=== PATIENT | female | born 1970 | race Caucasian/White ===

== ENCOUNTER 2017-02-19 20:24 | Emergency (ER) | payer OTHER ==
--- NOTE | 2017-02-19 21:12 | ED CLINICAL REPORT ---
Clinical Report - Physicians/Mid Levels [facility] [address] [place] [address] 02/19/2017 20:26 [id number] Time Seen: 2048. Arrived- By private vehicle. Historian- patient. HISTORY OF PRESENT ILLNESS Chief Complaint: Injury to left ankle. (2 days prior to arrival, patient sustained an inversion injury to her left ankle, all wearing shoes, and her garden on uneven surface. Since that incident she has had some pain, initially had difficulty with ambulation, however such as improved. Reports no new rash over the last 24 hours to her left ankle. Denies prior surgeries to the left ankle. Reports prior history of ankle sprain. Denies any fevers or chills. Patient denies a history of DVT. Patient denies any recent antibiotic use. Denies any history of MRSA.). REVIEW OF SYSTEMS The patient complains of pain on weight bearing. No skin laceration. All systems otherwise negative, except as recorded above. PAST HISTORY The patient has not had a prior injury to the same area. SOCIAL HISTORY Current every day light tobacco smoker. No alcohol use or drug use. ADDITIONAL NOTES The nursing notes have been reviewed. PHYSICAL EXAM Vital Signs: 02/19/2017 21:31 BP: 109/71. HR: 80. RR: 18. O2 saturation: 100%. Pain level now: 6/10. Appearance: Alert. Head: Head atraumatic. ENT: Nose normal. Pharynx normal. Neck: Normal inspection. Neck supple. No decreased ROM in the neck. CVS: Normal heart rate and rhythm. Heart sounds normal. No cardiac murmur or extra heart sounds. Respiratory: No respiratory distress. Breath sounds normal. No chest wall injury. Skin: Skin warm. Normal skin color. Extremities: Left ankle: mild erythema, tenderness and swelling. Small joint effusion present. (erythema overlying the medial aspect of the malleolus, extending into the distal aspect of the tibia, as well as into the calcaneous. no plantar lesion. no vesicle. warmth present). No ligamentous laxity present. No ecchymosis or foreign body. No limitation in ROM. Left foot: erythema and mild tenderness of the lateral aspect of the foot. Neuro, Vascular and Tendons: Vascular status intact. Motor intact. Gait: Limping gait. Neuro: Oriented X 3. LABS, X-RAYS, AND EKG Lt Ankle X-ray: (IMPRESSION: 1. Soft tissue swelling. 2. Otherwise negative left ankle. Electronically Final signed by:Renny Ybarra MD 02/19/2017 9:53:40 PM). PROGRESS AND PROCEDURES Course of Care: full range of motion of the calcaneus or Achilles tenderness. No signs of fracture on x-ray. No signs of abscess. Patient with no history of previous rheumatoid, gouty or pseudogout arthritis. Signs of acute infectious process,with no history of MRSA, however present in the current setting of vomiting, we'll treat with Keflex and Bactrim. Patient's ancillary. Afebrile, nonseptic. Patient is stable. Symptoms better. Disposition: Discharged. CLINICAL IMPRESSION Sprain of the tibiofibular ligament of the left ankle. Cellulitis of the left lower leg and left ankle. INSTRUCTIONS Elevate affected areas above chest level. Prescription Medications: Cephalexin 500 mg: take 1 capsule orally every 8 hours for 10 days. No refill. Bactrim DS 800 mg / 160 mg: take 1 tablet orally for 10 days. No refill. Substitution is permissible. OTC Medications: Take OTC medications according to label instructions. Available over the counter. Acetaminophen (available over the counter): take according to label instructions. Motrin (available over the counter): take according to label instructions. (Electronically signed by Radha Sol P.A.-C 02/19/2017 22:06)
--- NOTE | 2017-02-19 21:12 | ED ORDER SUMMARY ---
..... Patient: JACQUI OQUENDO OrderSheet [facility] VisitID: [id number] [place] [address] 46y, F Registration Date/Time: 02/19/2017 ORDER SHEET Weight: 61.2 kg Allergies: No Known Drug Allergy GENERAL ORDERS: Ankle 3 or 4V Left Urgent (20:49 02/19/2017 Mohit Nava.A.-C) (Ack 20:51 IJurca ER Tech1) (20:59 MCampbell) MEDICATION ORDERS: Bactrim DS PO (Tablet 800-160 mg) 1 tab (NOW) (20:49 02/19/2017 Mohit Nava.A.-C) (Ack 21:15 SRoberts R.N.) (21:29 SRoberts R.N.) Tdap IM 0.5 mL (NOW, per protocol) (20:49 02/19/2017 Mohit Nava.A.-C) (Ack 21:15 SRoberts R.N.) (21:30 SRoberts R.N.) IV FLUIDS: ORDER SHEET NOTES: [Electronically signed by Yahaira Lemon R.N. (21:33 02/19/2017)] [Electronically signed by Radha Sol P.A.-C (22:06 02/19/2017)] [Electronically locked/signed by Yahaira Lemon R.N. (21:33 02/19/2017)]
--- NOTE | 2017-02-19 21:12 | ED NURSING NOTES ---
Clinical Report - Nurses [facility] [address] [place] [address] 02/19/2017 20:26 [id number] TRI[facility] Triage time 20:43. Acuity: LEVEL 4. Chief Complaint: LEFT LOWER EXTREMITY PAIN, SWELLING and REDNESS. --20:46 TonyaB, R.N. 20:43 02/19/17. BP: 134/91. HR: 93. RR: 16. O2 saturation: 100%. Temp: 98.2 F. Pain level now: 04/10. --20:46 TonyaB, R.N. Weight: 61.2 kg. Height/Length: 67 inches. BMI: 21.2. --20:46 TonyaB, R.N. Medications None. --20:44 TonyaB, R.N. Allergies No Known Drug Allergy. --20:44 TonyaB, R.N. History Arrived by private vehicle. Historian: patient. Accompanied by friend. Injury occurred. Location of injuries: left lateral ankle. This occurred (2 days ago). She has had swelling and redness. Treatment COGNOS DEVELOPER: None. PAST MEDICAL HX: Tetanus status: up-to-date. Immunizations: up-to-date. Last normal menstrual period- 4 months. SOCIAL HX: Light tobacco smoker. No alcohol use or drug use. No infectious disease exposure. SELF HARM ASSESSMENT: A self harm assessment was performed. The patient answered "no" to the question "Have you recently felt down, depressed, or hopeless?", "Have you noticed less interest or pleasure in doing things?", "Do you have thoughts of harming or killing yourself?", "Are you here because you tried to hurt yourself?", "Have you ever tried to hurt yourself before today?", "Have you recently had thoughts about harming or killing others?" and "Do you have any dangerous items in your possession?". FALL RISK ASSESSMENT: Fall risk assessment completed. No fall risk identified. NUTRITIONAL RISK ASSESSMENT: The nutritional risk assessment revealed no deficiencies. FUNCTIONAL ASSESSMENT: Functional assessment: no impairments noted. LEARNING NEEDS ASSESSMENT: The learning needs assessment revealed no barriers. SKIN INTEGRITY ASSESSMENT: Skin integrity risk assessment completed. No skin integrity risk identified. --20:46 Shefali Patel SOCIAL HX: Occasional alcohol use. --20:48 Shefali Patel PROBLEMS: no known problems. ADDITIONAL SURGERIES: Appendectomy. . Tubal Ligation. --20:44 Shefali Patel Interventions ID band on patient. To treatment room. --20:46 Shefali Patel PHYSICAL ASSESSMENT Ambulatory to room. GENERAL / NEURO / PSYCH: Oriented X 4. Alert. Appears in no acute distress. EXTREMITIES: Extremity pulses are within normal limits. Left ankle: tenderness, swelling and erythema. SKIN: Skin intact. Skin is warm and dry. --20:47 Shefali Patel NURSING PROGRESS NOTES Patient identifiers checked. Call light placed in reach. Side rails up x 1. Bed placed in lowest position. Brakes of bed on. --20:47 Shefali Patel 21:24 02/19/2017 Bactrim DS (Sulfamethoxazole-TMP DS) PO 1 tab given. Allergies verified and confirmed 5 rights. --21:29 Yahaira Lemon R.N. 21:25 02/19/2017 TDAP IM 0.5 mL given. (Lot#: [id number], expiration date: 08/08/2018, Asphalt Heater Operator: sanofi pasteur). Given in the right deltoid. Allergies verified and confirmed 5 rights. Vaccine information statement provided to the patient. --21:30 Yahaira Lemon R.N. DISPOSITION / DISCHARGE Condition at departure: unchanged. No learning barriers present. Discharge instructions provided and reviewed with the patient. Reviewed medication(s) side effects, precautions, dosing and course information. Prescription(s) given to the patient. Patient verbalized understanding. Written instructions provided in Divehi. The patient was discharged home and accompanied by data communications analyst. She left the Emergency Department ambulatory and via private vehicle. Sheet Rocker driving. Medication list reviewed and validated. --21:31 Yahaira Lemon R.N. 21:31 02/19/17. BP: 109/71. HR: 80. RR: 18. O2 saturation: 100%. Temp: deferred. Pain level now: 6/10. 20:43 02/19/17. BP: 134/91. HR: 93. RR: 16. O2 saturation: 100%. Temp: 98.2 F. Pain level now: 04/10. --21:32 Yahaira Lemon R.N. Locked/Released at 02/19/2017 21:33 by Yahaira Lemon R.N.
--- NOTE | 2017-02-19 21:12 | ED NURSING NOTES ---
Clinical Report - Nurses [facility] [address] [place] [address] 02/19/2017 20:26 [id number] TRI[facility] Triage time 20:43. Acuity: LEVEL 4. Chief Complaint: LEFT LOWER EXTREMITY PAIN, SWELLING and REDNESS. --20:46 TonyaB, R.N. 20:43 02/19/17. BP: 134/91. HR: 93. RR: 16. O2 saturation: 100%. Temp: 98.2 F. Pain level now: 04/10. --20:46 TonyaB, R.N. Weight: 61.2 kg. Height/Length: 67 inches. BMI: 21.2. --20:46 TonyaB, R.N. Medications None. --20:44 TonyaB, R.N. Allergies No Known Drug Allergy. --20:44 TonyaB, R.N. History Arrived by private vehicle. Historian: patient. Accompanied by friend. Injury occurred. Location of injuries: left lateral ankle. This occurred (2 days ago). She has had swelling and redness. Treatment NUT GRINDER: None. PAST MEDICAL HX: Tetanus status: up-to-date. Immunizations: up-to-date. Last normal menstrual period- 4 months. SOCIAL HX: Light tobacco smoker. No alcohol use or drug use. No infectious disease exposure. SELF HARM ASSESSMENT: A self harm assessment was performed. The patient answered "no" to the question "Have you recently felt down, depressed, or hopeless?", "Have you noticed less interest or pleasure in doing things?", "Do you have thoughts of harming or killing yourself?", "Are you here because you tried to hurt yourself?", "Have you ever tried to hurt yourself before today?", "Have you recently had thoughts about harming or killing others?" and "Do you have any dangerous items in your possession?". FALL RISK ASSESSMENT: Fall risk assessment completed. No fall risk identified. NUTRITIONAL RISK ASSESSMENT: The nutritional risk assessment revealed no deficiencies. FUNCTIONAL ASSESSMENT: Functional assessment: no impairments noted. LEARNING NEEDS ASSESSMENT: The learning needs assessment revealed no barriers. SKIN INTEGRITY ASSESSMENT: Skin integrity risk assessment completed. No skin integrity risk identified. --20:46 Shefali Patel SOCIAL HX: Occasional alcohol use. --20:48 Shefali Patel PROBLEMS: no known problems. ADDITIONAL SURGERIES: Appendectomy. . Tubal Ligation. --20:44 Shefali Patel Interventions ID band on patient. To treatment room. --20:46 Shefali Patel PHYSICAL ASSESSMENT Ambulatory to room. GENERAL / NEURO / PSYCH: Oriented X 4. Alert. Appears in no acute distress. EXTREMITIES: Extremity pulses are within normal limits. Left ankle: tenderness, swelling and erythema. SKIN: Skin intact. Skin is warm and dry. --20:47 Shefali Patel NURSING PROGRESS NOTES Patient identifiers checked. Call light placed in reach. Side rails up x 1. Bed placed in lowest position. Brakes of bed on. --20:47 Shefali Patel 21:24 02/19/2017 Bactrim DS (Sulfamethoxazole-TMP DS) PO 1 tab given. Allergies verified and confirmed 5 rights. --21:29 Yahaira Lemon R.N. 21:25 02/19/2017 TDAP IM 0.5 mL given. (Lot#: [id number], expiration date: 08/08/2018, Pbx Repairer: sanofi pasteur). Given in the right deltoid. Allergies verified and confirmed 5 rights. Vaccine information statement provided to the patient. --21:30 Yahaira Lemon R.N. DISPOSITION / DISCHARGE Condition at departure: unchanged. No learning barriers present. Discharge instructions provided and reviewed with the patient. Reviewed medication(s) side effects, precautions, dosing and course information. Prescription(s) given to the patient. Patient verbalized understanding. Written instructions provided in Armenian. The patient was discharged home and accompanied by notching machine operator. She left the Emergency Department ambulatory and via private vehicle. Net Washer driving. Medication list reviewed and validated. --21:31 Yahaira Lemon R.N. 21:31 02/19/17. BP: 109/71. HR: 80. RR: 18. O2 saturation: 100%. Temp: deferred. Pain level now: 6/10. 20:43 02/19/17. BP: 134/91. HR: 93. RR: 16. O2 saturation: 100%. Temp: 98.2 F. Pain level now: 04/10. --21:32 Yahaira Lemon R.N. Locked/Released at 02/19/2017 21:33 by Yahaira Lemon R.N.
--- NOTE | 2017-02-19 21:12 | ED ORDER SUMMARY ---
..... Patient: JACQUI OQUENDO OrderSheet [facility] VisitID: [id number] [place] [address] 46y, F Registration Date/Time: 02/19/2017 ORDER SHEET Weight: 61.2 kg Allergies: No Known Drug Allergy GENERAL ORDERS: Ankle 3 or 4V Left Urgent (20:49 02/19/2017 Mohit Nava.A.-C) (Ack 20:51 IJurca ER Tech1) (20:59 MCampbell) MEDICATION ORDERS: Bactrim DS PO (Tablet 800-160 mg) 1 tab (NOW) (20:49 02/19/2017 Mohit Nava.A.-C) (Ack 21:15 SRoberts R.N.) (21:29 SRoberts R.N.) Tdap IM 0.5 mL (NOW, per protocol) (20:49 02/19/2017 Mohit Nava.A.-C) (Ack 21:15 SRoberts R.N.) (21:30 SRoberts R.N.) IV FLUIDS: ORDER SHEET NOTES: [Electronically signed by Yahaira Lemon R.N. (21:33 02/19/2017)] [Electronically signed by Radha Sol P.A.-C (22:06 02/19/2017)] [Electronically locked/signed by Yahaira Lemon R.N. (21:33 02/19/2017)]
--- NOTE | 2017-02-19 21:57 | DIAGNOSTIC IMAGING REPORT ---
PROCEDURE: XR ANKLE 3 OR 4 VIEWS - LEFT INDICATION: TRAUMA/INJURY TECHNIQUE: Four views. COMPARISON: None. FINDINGS: Mild to moderate soft tissue swelling. Osseous structures and joint spaces are normal. IMPRESSION: 1. Soft tissue swelling. 2. Otherwise negative left ankle.
--- NOTE | 2017-02-19 22:06 | ED MAR SUMMARY ---
..... Medication Administration Record [facility] [address] [place] [address] Patient: JACQUI OQUENDO Visit ID: [id number] 46y, F Weight: 61.2 kg Height/Length: 67 in BMI: 21.2 ALLERGIES: No Known Drug Allergy Given 21:24 02/19/2017 Yahaira Lemon RHinaN. Medication Administered: BACTRIM DS [PO] (SULFAMETHOXAZOLE-TMP DS), Dose: 1 tab PO. Medication Ordered: Bactrim DS PO (Tablet 800-160 mg) 1 tab (NOW). Given 21:25 02/19/2017 Yahaira Lemon, RHinaN. Medication Administered: TDAP [IM], Dose: 0.5 mL IM. Medication Ordered: Tdap IM 0.5 mL (NOW, per protocol).
--- NOTE | 2017-02-19 22:06 | ED MED RECONCILIATION SUMMARY ---
Patient: JACQUI OQUENDO Medication Reconciliation Report [facility] VisitID: [id number] [place] [address] 46y, F Registration Date/Time: 02/19/2017 Weight: 61.2 kg Height/Length: 67 in. BMI: 21.2 ALLERGIES: No Known Drug Allergy The patient's Home Medications are listed below: NONE. The source(s) of the original Home Medication information: Not obtained. The following Medications were given to the patient in the Emergency Department: Bactrim DS [PO] PO 1 tab, administered: 02/19/2017 9:24:00 PM TDAP [IM] IM 0.5 mL, administered: 02/19/2017 9:25:00 PM The following Medications were prescribed to the patient: Take OTC medications according to label instructions. Available over the counter. -- Radha Sol, P.A.-C Acetaminophen (available over the counter): take according to label instructions. -- Radha Sol, P.A.-C Motrin (available over the counter): take according to label instructions. -- Radha Sol, P.A.-C Cephalexin 500 mg: take 1 capsule orally every 8 hours for 10 days. No refill. -- Radha Sol, P.A.-C Bactrim DS 800 mg / 160 mg: take 1 tablet orally for 10 days. No refill. Substitution is permissible. -- Radha Sol, P.A.-C
--- NOTE | 2017-02-19 22:06 | ED MED RECONCILIATION SUMMARY ---
Patient: JACQUI OQUENDO Medication Reconciliation Report [facility] VisitID: [id number] [place] [address] 46y, F Registration Date/Time: 02/19/2017 Weight: 61.2 kg Height/Length: 67 in. BMI: 21.2 ALLERGIES: No Known Drug Allergy The patient's Home Medications are listed below: NONE. The source(s) of the original Home Medication information: Not obtained. The following Medications were given to the patient in the Emergency Department: Bactrim DS [PO] PO 1 tab, administered: 02/19/2017 9:24:00 PM TDAP [IM] IM 0.5 mL, administered: 02/19/2017 9:25:00 PM The following Medications were prescribed to the patient: Take OTC medications according to label instructions. Available over the counter. -- Radha Sol, P.A.-C Acetaminophen (available over the counter): take according to label instructions. -- Radha Sol, P.A.-C Motrin (available over the counter): take according to label instructions. -- Radha Sol, P.A.-C Cephalexin 500 mg: take 1 capsule orally every 8 hours for 10 days. No refill. -- Radha Sol, P.A.-C Bactrim DS 800 mg / 160 mg: take 1 tablet orally for 10 days. No refill. Substitution is permissible. -- Radha Sol, P.A.-C
--- NOTE | 2017-02-19 22:06 | ED DISCHARGE INSTRUCTIONS ---
Patient: JACQUI OQUENDO General Instructions [facility] VisitID: [id number] [place] [address] 46y, F Registration Date/Time: 02/19/2017 Sprain of the tibiofibular ligament of the left ankle. Cellulitis of the left lower leg and left ankle. INSTRUCTIONS Elevate affected areas above chest level. Prescription Medications: Cephalexin 500 mg: take 1 capsule orally every 8 hours for 10 days. No refill. Bactrim DS 800 mg / 160 mg: take 1 tablet orally for 10 days. No refill. Substitution is permissible. OTC Medications: Take OTC medications according to label instructions. Available over the counter. Acetaminophen (available over the counter): take according to label instructions. Motrin (available over the counter): take according to label instructions. ADDITIONAL INFORMATION Sprain, Ankle,With X-Ray A sprain is an injury to the ligaments or capsule that holds a joint together. There are no broken bones. Most sprains take from four to six weeks to heal. If the ligament is completely torn (severe sprain), it can take several months to recover. Mild to moderate sprains may be treated with an elastic wrap or an in-shoe splint to provide support and prevent re-injury. A mild sprain may not require any additional support. A severe sprain may require surgery to repair. Home care The following guidelines will help you care for your injury at home: Stay off the injured leg as much as possible until you can walk on it without pain. If you have a lot of pain with walking, crutches or a walker may be prescribed. (These can be rented or purchased at many pharmacies and surgical or orthopedic supply stores). Follow your doctor's advice regarding when to begin bearing weight on that leg. Keep your leg elevated to reduce pain and swelling. When sleeping, place a pillow under the injured leg. When sitting, support the injured leg so it is level with your waist. This is very important during the first 48 hours. Apply an ice pack (ice cubes in a plastic bag, wrapped in a towel) over the injured area for 20 minutes every 12 hours the first day. You can place the ice pack directly over the splint/cast. If you were given a boot, open it to apply the ice pack. Continue with ice packs 34 times a day for the next two days, then as needed for the relief of pain and swelling. You may use acetaminophen or ibuprofen to control pain, unless another pain medicine was prescribed. If you have chronic liver or kidney disease or ever had a stomach ulcer or GI bleeding, talk with your doctor before using these medicines. You may return to sports after healing, when you can run without pain. A sprained ankle is at risk for re-injury during the first six weeks. During that time, protect your ankle with an in-shoe splint that prevents tilting of your ankle from side to side. This is very important if you do active work or play sports during that time. Follow-up care Any X-rays you had today dont show any broken bones, breaks, or fractures. Sometimes fractures dont show up on the first X-ray. Bruises and sprains can sometimes hurt as much as a fracture. These injuries can take time to heal completely. If your symptoms dont improve or they get worse, talk with your doctor. You may need a repeat X-ray. When to seek medical care Get prompt medical attention if any of the following occur: The plaster cast or splint gets wet or soft The fiberglass cast or splint gets wet and does not dry for 24 hours Pain or swelling increases, or redness appears Toes become cold, blue, numb or tingly Re-injure your ankle Cellulitis You have an infection of the skin known as cellulitis. This usually starts with a scrape, cut, insect bite, blister or other opening in the skin which becomes infected. This is a serious condition. It must be watched closely to be sure the infection is not spreading. With antibiotic treatment, the size of the red area will gradually shrink in size until the skin returns to normal. This will take 7-10 days. The red area should never increase in size once the antibiotic medicine has been started. Occasionally, an infection will be resistant to one antibiotic and another one will have to be used. Home Care: 1) Limit the use of the affected part, since excess movement can cause the infection to spread. 2) If the infection is on your leg, walk as little as possible during the first few days of the treatment. Keep your leg elevated while sitting. This will reduce swelling. 3) Take all of the antibiotic medicine exactly as directed until it is gone. Be careful not to miss any doses, especially during the first seven days. Follow Up with your doctor or this facility as directed. Check the infected area daily for the warning signs listed below. Get Prompt Medical Attention if any of the following occur: -- Spreading area of redness -- Increasing swelling or pain -- Appearance of pus or drainage -- Fever over 100.4 F (38.0 C) oral, or over 101.4 F (38.6 C) rectal, after two days on antibiotics Cephalexin Monohydrate Oral tablet What is this medicine? CEPHALEXIN (sef a GERRY in) is a cephalosporin antibiotic. It is used to treat certain kinds of bacterial infections It will not work for colds, flu, or other viral infections. How should I use this medicine? Take this medicine by mouth with a full glass of water. Follow the directions on the prescription label. This medicine can be taken with or without food. Take your medicine at regular intervals. Do not take your medicine more often than directed. Take all of your medicine as directed even if you think you are better. Do not skip doses or stop your medicine early. Talk to your machine tester regarding the use of this medicine in children. While this drug may be prescribed for selected conditions, precautions do apply. What side effects may I notice from receiving this medicine? Side effects that you should report to your doctor or health director of home care hospice as soon as possible: allergic reactions like skin rash, itching or hives, swelling of the face, lips, or tongue breathing problems pain or trouble passing urine redness, blistering, peeling or loosening of the skin, including inside the mouth severe or watery diarrhea unusually weak or tired yellowing of the eyes, skin Side effects that usually do not require medical attention (report to your doctor or health director of home care hospice if they continue or are bothersome): gas or heartburn genital or anal irritation headache joint or muscle pain nausea, vomiting What may interact with this medicine? probenecid some other antibiotics What if I miss a dose? If you miss a dose, take it as soon as you can. If it is almost time for your next dose, take only that dose. Do not take double or extra doses. There should be at least 4 to 6 hours between doses. Where should I keep my medicine? Keep out of the reach of children. Store at room temperature between 59 and 86 degrees F (15 and 30 degrees C). Throw away any unused medicine after the expiration date. What should I tell my health care provider before I take this medicine? They need to know if you have any of these conditions: kidney disease stomach or intestine problems, especially colitis an unusual or allergic reaction to cephalexin, other cephalosporins, penicillins, other antibiotics, medicines, foods, dyes or preservatives or trying to get breast-feeding What should I watch for while using this medicine? Tell your doctor or health director of home care hospice if your symptoms do not begin to improve in a few days. Do not treat diarrhea with over the counter products. Contact your doctor if you have diarrhea that lasts more than 2 days or if it is severe and watery. If you have diabetes, you may get a false-positive result for sugar in your urine. Check with your doctor or health director of home care hospice. Sulfamethoxazole, Trimethoprim Oral tablet What is this medicine? SULFAMETHOXAZOLE; TRIMETHOPRIM or SMX-TMP (suhl fuh meth OK porsha zohl; trye METH oh prim) is a combination of a sulfonamide antibiotic and a second antibiotic, trimethoprim. It is used to treat or prevent certain kinds of bacterial infections. It will not work for colds, flu, or other viral infections. How should I use this medicine? Take this medicine by mouth with a full glass of water. Follow the directions on the prescription label. Take your medicine at regular intervals. Do not take it more often than directed. Do not skip doses or stop your medicine early. Talk to your machine tester regarding the use of this medicine in children. Special care may be needed. This medicine has been used in children as young as 2 months of age. What side effects may I notice from receiving this medicine? Side effects that you should report to your doctor or health director of home care hospice as soon as possible: allergic reactions like skin rash or hives, swelling of the face, lips, or tongue breathing problems fever or chills, sore throat irregular heartbeat, chest pain joint or muscle pain pain or difficulty passing urine red pinpoint spots on skin redness, blistering, peeling or loosening of the skin, including inside the mouth unusual bleeding or bruising unusually weak or tired yellowing of the eyes or skin Side effects that usually do not require medical attention (report to your doctor or health director of home care hospice if they continue or are bothersome): diarrhea dizziness headache loss of appetite nausea, vomiting nervousness What may interact with this medicine? Do not take this medicine with any of the following medications: aminobenzoate potassium dofetilide metronidazole This medicine may also interact with the following medications: KANE inhibitors like benazepril, enalapril, lisinopril, and ramipril cyclosporine digoxin diuretics indomethacin medicines for diabetes methenamine methotrexate phenytoin potassium supplements pyrimethamine sulfinpyrazone tricyclic antidepressants warfarin What if I miss a dose? If you miss a dose, take it as soon as you can. If it is almost time for your next dose, take only that dose. Do not take double or extra doses. Where should I keep my medicine? Keep out of the reach of children. Store at room temperature between 20 to 25 degrees C (68 to 77 degrees F). Protect from light. Throw away any unused medicine after the expiration date. What should I tell my health care provider before I take this medicine? They need to know if you have any of these conditions: anemia asthma being treated with anticonvulsants if you frequently drink alcohol containing drinks kidney disease liver disease low level of folic acid or [id number] dehydrogenase poor nutrition or malabsorption porphyria severe allergies thyroid disorder an unusual or allergic reaction to sulfamethoxazole, trimethoprim, sulfa drugs, other medicines, foods, dyes, or preservatives or trying to get breast-feeding What should I watch for while using this medicine? Tell your doctor or health director of home care hospice if your symptoms do not improve. Drink several glasses of water a day to reduce the risk of kidney problems. Do not treat diarrhea with over the counter products. Contact your doctor if you have diarrhea that lasts more than 2 days or if it is severe and watery. This medicine can make you more sensitive to the sun. Keep out of the sun. If you cannot avoid being in the sun, wear protective clothing and use a sunscreen. Do not use sun lamps or tanning beds/booths. You have been given the following additional information: Sprain, Ankle, With X-Ray Cellulitis Cephalexin Monohydrate Oral tablet Sulfamethoxazole, Trimethoprim Oral tablet (Electronically signed by Radha Sol P.A.-C 02/19/2017 22:06)
--- NOTE | 2017-02-19 22:06 | ED MAR SUMMARY ---
..... Medication Administration Record [facility] [address] [place] [address] Patient: JACQUI OQUENDO Visit ID: [id number] 46y, F Weight: 61.2 kg Height/Length: 67 in BMI: 21.2 ALLERGIES: No Known Drug Allergy Given 21:24 02/19/2017 Yahaira Lemon RHinaN. Medication Administered: BACTRIM DS [PO] (SULFAMETHOXAZOLE-TMP DS), Dose: 1 tab PO. Medication Ordered: Bactrim DS PO (Tablet 800-160 mg) 1 tab (NOW). Given 21:25 02/19/2017 Yahaira Lemon, RHinaN. Medication Administered: TDAP [IM], Dose: 0.5 mL IM. Medication Ordered: Tdap IM 0.5 mL (NOW, per protocol).
== END 2017-02-19 21:30 | disposition home or self-care (01) ==
LOC: ED SRH 20:24
DX: S93.432A Sprain of tibiofibular ligament of left ankle, initial encounter (principal); L03.116 Cellulitis of left lower limb; X50.1XXA Overexertion from prolonged static or awkward postures, initial encounter; Y93.01 Activity, walking, marching and hiking; Y99.9 Unspecified external cause status; Y92.007 Garden or yard of unspecified non-institutional (private) residence as the place of occurrence of the external cause; Z23 Encounter for immunization